=== PATIENT | female | born 1955 | race Asian ===

== ENCOUNTER 2017-08-12 10:49 | Emergency (ER) | payer BC, OTHER ==
[2017-08-12 11:01] VITALS: BP 133/82; PULSE 77; TEMP 98.1; BMI 20.3
--- NOTE | 2017-08-12 11:35 | PDOC ---
History of Present Illness - General History Source: Patient, Spouse Exam Limitations: No Limitations - History of Present Illness Initial Comments: 08/12/17 12:10 The patient is a 61 year old female with a significant past medical history of IBS and GERD (on Omeprazole) who presents to the emergency department for evaluation of left leg pain and to rule out DVT. The patient reports moderate left leg pain with associated swelling for 1 week. She reports moderate left leg pain at rest, but notes the pain is alleviated with movement. The patient states she feels a sensation of "heaviness" on her left leg. She reports noticing bulging, swelling, and discoloration behind her left knee which prompted her to visit her PCP for evaluation. She reports visiting her PCP who advised her to visit the emergency department for further evaluation and to rule out DVT. The patient states she had a vascular test conducted on her left leg 6 weeks ago secondary to issues with Varicose veins, which had negative findings. The patient reports visiting [place] 2 weeks ago, and states her pain increased on her flight back home. The patient denies history of blood clots, chest pain, shortness of breath, headache, and dizziness. Denies fevers, chills, nausea, vomiting, diarrhea, and constipation. Denies dysuria, frequency, urgency, and hematuria. Allergies: NKDA, Beef and Shellfish derived. Past surgical history: Denies. Social history: No reported cigarette, alcohol, or drug use. PCP: Dr. Sofiya Hicks ([phone]) <Tequila Jerome - Last Filed: 08/12/17 12:10> <Sree Maradiaga - Last Filed: 08/12/17 13:29> - General Chief Complaint: Pain Stated Complaint: LEG PAIN Time Seen by Provider: 08/12/17 11:34 Past History <Tequila Jerome - Last Filed: 08/12/17 12:10> - Past Medical History COPD: No GI Disorders: (IBS, GERD) - Immunization History Immunization Up to Date: No - Suicide/Smoking/Psychosocial Hx Smoking History: Never smoked Have you smoked in the past 12 months: No Information on smoking cessation initiated: No Hx Alcohol Use: No Drug/Substance Use Hx: No Substance Use Type: None <Sree Maradiaga - Last Filed: 08/12/17 13:29> - Past Medical History Allergies/Adverse Reactions: Allergies Allergy/AdvReac Type Severity Reaction Status Date / Time Beef Containing Products Allergy Hives Verified 08/12/17 10:55 shellfish derived Allergy Hives Verified 08/12/17 10:55 BEEF Allergy Hives Uncoded 08/12/17 10:55 Review of Systems - Review of Systems Able to Perform ROS?: Yes Comments:: A complete review of 10 out of 10 review of systems is taken and is negative apart from what is previously mentioned below and in the HPI. <Tequila Jerome - Last Filed: 08/12/17 12:10> *Physical Exam - Vital Signs Last Vital Signs Temp Pulse Resp BP Pulse Ox 98.1 F 77 18 133/82 100 08/12/17 10:56 08/12/17 10:56 08/12/17 10:56 08/12/17 10:56 08/12/17 10:56 - Physical Exam Comments: Vitals: Triage Vital signs reviewed General Appearance: no acute distress, well nourished well developed, Head: Atraumatic, normocephalic Nose: Nares patent bilaterally;no nasal congestion Neck: Supple;No Nuchal rigidity Chest Wall: Nontender Cardiac: Regular rate and rhythm, no murmurs, no rubs, no gallops, Lungs: Clear to auscultation bilateral, good air movement bilaterally, Abdomen: Soft, nondistended, normal bowel sounds, nontender to palpation Extremities: (+)Varicose veins to posterior aspect of left leg, otherwise normal. Skin: Warm and dry, no rashes or lesions, no petechiae Psych: normal mood, normal affect <Tequila Jerome - Last Filed: 08/12/17 12:10> - Vital Signs Last Vital Signs Temp Pulse Resp BP Pulse Ox 98.1 F 77 18 133/82 100 08/12/17 10:56 08/12/17 10:56 08/12/17 10:56 08/12/17 10:56 08/12/17 10:56 <Sree Maradiaga - Last Filed: 08/12/17 13:29> Medical Decision Making - Medical Decision Making The patient is a 61 year old female with a significant past medical history of IBS and GERD (on Omeprazole) who presents to the emergency department for evaluation of left leg pain and to rule out DVT. Plan: Ultrasound to rule out DVT <Tequila Jerome - Last Filed: 08/12/17 12:10> - Medical Decision Making No evidence of DVT small Dueñas's cyst noted. Patient advised to follow-up with her doctor for repeat ultrasound in 2 weeks if symptoms persist Findings, the need for follow-up and strict return instructions discussed with patient. <Sree Maradiaga - Last Filed: 08/12/17 13:29> *DC/Admit/Observation/Transfer - Attestations Scribe Attestion: Documentation prepared by Tequila Jerome, acting as hospitalist medical director for Sree Maradiaga MD. <Tequila Jerome - Last Filed: 08/12/17 12:10> - Discharge Dispostion Decision to Admit order: No <Sree Maradiaga - Last Filed: 08/12/17 13:29> Diagnosis at time of Disposition: Bakers cyst Qualifiers: Laterality: left Qualified Code(s): M71.22 - Synovial cyst of popliteal space [ Dueñas], left knee - Discharge Dispostion Disposition: HOME - Referrals Referrals: Sofiya Hicks MD [Primary Care Provider] - - Patient Instructions Printed Discharge Instructions: Bakers Cyst Additional Instructions: Apply warm compresses to the back of knee. Keep elevated as much as possible. Return to the emergency department for any severe worsening symptoms or for any concerns. Follow-up with your doctor in 1-2 weeks if symptoms aren't improved. - Post Discharge Activity
== END 2017-08-12 13:30 | disposition home or self-care (01) ==
LOC: JER 10:49
DX: M71.22 Synovial cyst of popliteal space [Baker], left knee (principal); K21.9 Gastro-esophageal reflux disease without esophagitis; K58.9 Irritable bowel syndrome, unspecified
CPT/HCPCS: 93971-TC; 99282-25

== ENCOUNTER 2020-04-26 11:10 | Emergency (ER) | payer BC, OTHER ==
[2020-04-26 11:31] VITALS: BP 162/84; PULSE 77; TEMP 97.9
== END 2020-04-26 12:18 | disposition home or self-care (01) ==
LOC: JER 11:10
DX: R05 Cough (principal); R53.1 Weakness; R07.0 Pain in throat
CPT/HCPCS: 99284-25; C9803; U0003

== ENCOUNTER 2020-05-02 10:39 | Emergency (ER) | payer OTHER ==
[2020-05-02 11:04] VITALS: PULSE 75
[2020-05-02] MEDS ORDERED: ONDANSETRON 4 MG/2 ML VIAL IVPUSH ONE (11:43)
[2020-05-02] MEDS ORDERED: SODIUM CHLORIDE 1,000 ML IV STA (11:43)
[2020-05-02] MEDS ORDERED: ACETAMINOPHEN 1000 MG/100 ML VIAL (NON FORMULARY) IVPB ONE (11:43)
[2020-05-02] MEDS ORDERED: ACETAMINOPHEN INJECTION 100 ML IVPB ONE (12:46)
[2020-05-02] MEDS ORDERED: BAMLANIVIMAB 700 MG in SODIUM CHLORIDE 250 ML IVPB ONE (12:54)
[2020-05-02 12:59] LABS: BASO % 0.1 % (0-2.0); EOS % 0.2 % (0-4.5); HEMATOCRIT 41.7 % (32.4-45.2); HEMOGLOBIN 14.2 GM/dL (10.7-15.3); MCH 30.9 pg (25.7-33.7); MCHC 34.1 g/dl (32.0-36.0); MEAN CELL VOLUME 90.7 fl (80-96); MEAN PLT VOLUME 8.1 fl (7.5-11.1); MONO % 3.5 % (3.8-10.2); NEUT % 84.2 % (42.8-82.8); PLATELET COUNT 315 K/MM3 (134-434); RDW 12.8 % (11.6-15.6)
[2020-05-02 13:17] LABS: CHLORIDE 99 mmol/L (98-107); POTASSIUM 4.4 mmol/L (3.5-5.1); SODIUM 134 mmol/L (136-145)
[2020-05-02 13:19] LABS: CALCIUM 9.1 mg/dL (8.5-10.1)
[2020-05-02 13:20] LABS: ALBUMIN 4.1 g/dl (3.4-5.0); ANION GAP 4 MMOL/L (8-16); BLOOD UREA NITROGEN 6.7 mg/dL (7-18); CO2 30 mmol/L (21-32); GLUCOSE,RANDOM 104 mg/dL (74-106)
[2020-05-02 13:23] LABS: CREATININE 0.6 mg/dL (0.55-1.3); SGOT/AST 40 U/L (15-37); SGPT/ALT 43 U/L (13-61)
[2020-05-02 13:24] LABS: BILIRUBIN,TOTAL 0.4 mg/dL (0.2-1); TOT PROT 8.3 g/dl (6.4-8.2)
[2020-05-02 13:25] LABS: ALK PHOS 54 U/L (45-117)
[2020-05-02 18:04] VITALS: BP 174/91; TEMP 98.2
== END 2020-05-02 18:49 | disposition home or self-care (01) ==
LOC: JER 10:39 → JCOVINFU 10:39
PROC: 3E033GC Introduction of Other Therapeutic Substance into Peripheral Vein, Percutaneous Approach (ICD-10-PCS; principal; 2020-05-02)
PROC: 3E0337Z Introduction of Electrolytic and Water Balance Substance into Peripheral Vein, Percutaneous Approach (ICD-10-PCS; principal; 2020-05-02)
DX: U07.1 COVID-19 (principal)
CPT/HCPCS: 36415; 71046-TC-FY; 80053; 82550; 84484; 85025; 99284-25; J0131; M0239; Q0239

== ENCOUNTER 2020-11-16 17:17 | Observation (INO) | payer OTHER, BC ==
[2020-11-16 17:21] VITALS: BMI 19.1
[2020-11-16 18:51] LABS: BASO % 0.2 % (0-2.0); EOS % 0.1 % (0-4.5); HEMATOCRIT 34.8 % (32.4-45.2); HEMOGLOBIN 12.3 GM/dL (10.7-15.3); LYMPH % 10.2 % (8-40); MCH 31.8 pg (25.7-33.7); MCHC 35.5 g/dl (32.0-36.0); MEAN CELL VOLUME 89.6 fl (80-96); MEAN PLT VOLUME 7.2 fl (7.5-11.1); MONO % 3.8 % (3.8-10.2); NEUT % 85.7 % (42.8-82.8); PLATELET COUNT 248 10^3/uL (134-434); RBC 3.88 M/mm3 (3.60-5.2); RDW 13.2 % (11.6-15.6); WHITE BLOOD COUNT 10.5 K/mm3 (4.0-10.0)
[2020-11-16 19:07] LABS: BLOOD UREA NITROGEN 14.1 mg/dL (7-18); CALCIUM 8.4 mg/dL (8.5-10.1)
[2020-11-16 19:08] LABS: ALBUMIN 3.6 g/dl (3.4-5.0)
[2020-11-16 19:10] LABS: CREATININE 0.7 mg/dL (0.55-1.3)
[2020-11-16 19:12] LABS: BILIRUBIN,TOTAL 0.4 mg/dL (0.2-1); TOT PROT 6.9 g/dl (6.4-8.2)
[2020-11-16] MEDS ORDERED: SODIUM CHLORIDE 1,000 ML IV SCH (20:15)
[2020-11-17] MEDS ORDERED: ACETAMINOPHEN 325 MG TABLET (FP) PO PRN (03:14)
[2020-11-17] MEDS ORDERED: clonazePAM 0.25 MG ODT TABLETS SL ONE ×2 (03:15→04:00)
[2020-11-17 06:02] LABS: HEMOGLOBIN 12.4 GM/dL (10.7-15.3); MCH 31.9 pg (25.7-33.7); MCHC 35.3 g/dl (32.0-36.0); MEAN CELL VOLUME 90.2 fl (80-96); MEAN PLT VOLUME 7.3 fl (7.5-11.1); PLATELET COUNT 228 10^3/uL (134-434); RBC 3.88 M/mm3 (3.60-5.2); RDW 13.2 % (11.6-15.6); WHITE BLOOD COUNT 7.3 K/mm3 (4.0-10.0)
[2020-11-17 06:22] LABS: ALBUMIN 3.2 g/dl (3.4-5.0); BLOOD UREA NITROGEN 10.2 mg/dL (7-18); CALCIUM 7.9 mg/dL (8.5-10.1); MAGNESIUM 1.8 mg/dL (1.8-2.4)
[2020-11-17 06:25] LABS: CREATININE 0.6 mg/dL (0.55-1.3)
[2020-11-17 06:26] LABS: PHOSPHOROUS 3.9 mg/dL (2.5-4.9)
[2020-11-17 06:27] LABS: BILIRUBIN,TOTAL 0.3 mg/dL (0.2-1); TOT PROT 6.2 g/dl (6.4-8.2)
[2020-11-17] MEDS: ONDANSETRON *ODT* 4 MG TABLET SL SCH ×2 (06:33→14:54)
[2020-11-17] MEDS ORDERED: ARIPiprazole 5 MG TABLET ONE (09:49)
[2020-11-17] MEDS ORDERED: ENOXAPARIN NA (PORCINE) 40 MG/0.4 ML DISP.SYRIN SQ ONE (09:49)
[2020-11-17] MEDS ORDERED: ONDANSETRON *ODT* 4 MG TABLET ONE ×2 (09:49→14:34)
[2020-11-17] MEDS: ARIPiprazole 5 MG TABLET PO SCH ×2 (09:56→10:00)
[2020-11-17] MEDS: ENOXAPARIN NA (PORCINE) 40 MG/0.4 ML DISP.SYRIN SQ SCH ×2 (09:57→10:00)
[2020-11-17] MEDS: SODIUM CHLORIDE 0.9%/KCL 20 MEQ/1,000 ML INFUS.BAG IV SCH (14:59)
[2020-11-18] MEDS: ONDANSETRON *ODT* 4 MG TABLET SL SCH ×3 (01:30→14:31)
[2020-11-18] MEDS: SODIUM CHLORIDE 0.9%/KCL 20 MEQ/1,000 ML INFUS.BAG IV SCH (06:07)
[2020-11-18 09:33] LABS: BASO % 0.3 % (0-2.0); EOS % 0.9 % (0-4.5); HEMATOCRIT 35.4 % (32.4-45.2); HEMOGLOBIN 12.7 GM/dL (10.7-15.3); MCH 32.1 pg (25.7-33.7); MCHC 35.9 g/dl (32.0-36.0); MEAN CELL VOLUME 89.3 fl (80-96); MEAN PLT VOLUME 7.7 fl (7.5-11.1); MONO % 8.4 % (3.8-10.2); NEUT % 56.4 % (42.8-82.8); PLATELET COUNT 258 10^3/uL (134-434); RBC 3.96 M/mm3 (3.60-5.2); RDW 13.1 % (11.6-15.6); WHITE BLOOD COUNT 5.8 K/mm3 (4.0-10.0)
[2020-11-18] MEDS ORDERED: PT OWN MED DRAWER 7, Y5N ONE (09:48)
[2020-11-18 09:51] LABS: CALCIUM 8.4 mg/dL (8.5-10.1)
[2020-11-18 09:54] LABS: CREATININE 0.7 mg/dL (0.55-1.3)
[2020-11-18] MEDS: ENOXAPARIN NA (PORCINE) 40 MG/0.4 ML DISP.SYRIN SQ SCH (10:09)
[2020-11-18] MEDS: ARIPiprazole 5 MG TABLET PO SCH (10:09)
[2020-11-18] MEDS ORDERED: SODIUM CHLORIDE 1 GM TABLET PO ONE (11:17)
[2020-11-18] MEDS ORDERED: FAMOTIDINE 20 MG TABLET PO SCH ×2 (11:30→22:00)
[2020-11-18 12:34] VITALS: BP 122/71; PULSE 69; TEMP 98.4
== END 2020-11-18 16:56 | disposition home or self-care (01) ==
LOC: JER 17:17 → JERBED 11-17 00:17 → INTOOBSV 11-17 00:17 → J6S 11-17 23:29
PROVIDERS: ADMIT Internal Medicine; ATTEND Internal Medicine
PROC: 3E033GC Introduction of Other Therapeutic Substance into Peripheral Vein, Percutaneous Approach (ICD-10-PCS; principal; 2020-11-17)
PROC: 3E0337Z Introduction of Electrolytic and Water Balance Substance into Peripheral Vein, Percutaneous Approach (ICD-10-PCS; 2020-11-17)
DX: K58.9 Irritable bowel syndrome, unspecified (principal); F41.9 Anxiety disorder, unspecified; K21.9 Gastro-esophageal reflux disease without esophagitis; G47.00 Insomnia, unspecified; E87.1 Hypo-osmolality and hyponatremia; Z29.9 Encounter for prophylactic measures, unspecified; Z86.16 Personal history of COVID-19
CPT/HCPCS: 36415; 80048; 80053; 82570; 82962; 83690; 83735; 83930; 83935; 84100; 84300; 85025; 85027; 87040; 87045; 87046; 87086; 87324; 87449; 93005; 93010; 96361; 96365; 99285-25; C9803; G0378; Q0162; U0003; U0005